=== PATIENT | female | born 1990 | race Caucasian/White ===

== ENCOUNTER 2018-02-20 13:07 | Emergency (ER) | payer OTHER ==
[~2018-02-20] VITALS: Ht 157.5 cm; Wt 61.0 kg
[2018-02-20 14:36] LABS: CLARITY URINE CLOUDY (CLEAR); COLOR URINE YELLOW (YELLOW); KETONES URINE 1+ (NEGATIVE); LEUKOCYTE ESTERASE URINE 1+ (NEGATIVE); NITRITE URINE NEGATIVE (NEGATIVE); OCCULT BLOOD URINE NEGATIVE (NEGATIVE); PH URINE 5.5 (4.5-8.0); PROTEIN URINE NEGATIVE (NEGATIVE); SPECIFIC GRAVITY URINE 1.026 (1.005-1.030); UROBILINOGEN URINE 0.2 E.U./dL (0.2-1.0)
[2018-02-20] MEDS ORDERED: VISCOUS LIDOCAINE 2% 15 ML UDC MM STA (14:38)
[2018-02-20] MEDS ORDERED: MAGNESIUM/ALUMINUM HYDROXIDE/SIMETHICONE 30ML UDC PO ONE (14:45)
[2018-02-20] MEDS ORDERED: PHENOBARBITAL ELIXIR 30 MG/7.5ML UDC PO ONE (14:45)
[2018-02-20] MEDS ORDERED: OMEPRAZOLE 20MG CAPSULE EXTENDED RELEASE PO ONE (16:45)
[2018-02-20] MEDS ORDERED: KETOROLAC 30MG/ML VIAL IM ONE (16:45)
[2018-02-20 17:53] VITALS: BP 123/78
== END 2018-02-20 19:19 | disposition home or self-care (01) ==
LOC: ER 13:07
DX: K21.9 Gastro-esophageal reflux disease without esophagitis (principal)
CPT/HCPCS: 81003; 81025; 96372; 99284; J1885